=== PATIENT | female | born 1995 | race Caucasian/White ===

== ENCOUNTER → 2022-03-14 16:01 | Observation (INO) ==
[2022-03-14 14:54] LABS: Bilirubin,Urine Negative (Negative); Blood,Urine Negative (Negative); Clarity,Urine Clear (Clear); Color,Urine Light-Yellow (Yellow); Glucose,Urine (UA) Normal (Normal); Ketones,Urine Negative (Negative); Leukocyte Esterase,Urine Negative (Negative); Nitrite,Urine Negative (Negative); Protein,Urine Trace mg/dL (Neg-Trace); Specific Gravity,Urine 1.023 (1.010-1.025); Urobilinogen,Urine Normal (Normal)
== END | disposition home or self-care (01) ==
LOC: 1NENULAB
PROVIDERS: ADMIT Obstetrics & Gynecology; ATTEND Obstetrics & Gynecology

== ENCOUNTER 2022-03-19 02:43 | Inpatient (IN) ==
[2022-03-19] MEDS ORDERED: Ringers Solution, Lactated 1,000 ML ONE ×2 (03:28→21:11)
[2022-03-19] MEDS ORDERED: Penicillin G Potassium 5,000,000 UNIT in 0.9 % Sodium Chloride Mini Bag 100 ML IVPB ONE (04:05)
[2022-03-19] MEDS ORDERED: Famotidine 20 MG/2 ML VIAL IVP PRN (04:06)
[2022-03-19] MEDS ORDERED: *HR* Nalbuphine 10 MG/ML AMPUL IV PRN (04:06)
[2022-03-19] MEDS ORDERED: Metoclopramide 10 MG/2 ML VIAL IVP PRN ×2 (04:06→23:40)
[2022-03-19] MEDS ORDERED: Naloxone 0.4 MG/ML INJ IVP PRN (04:06)
[2022-03-19 04:36] LABS: Basophils # 0.1 K/mcL (0.0-0.2); Basophils % 0.3 %; Eosinophils # 0.1 K/mcL (0.0-0.6); Eosinophils % 0.9 %; Hematocrit 35.5 % (35.3-44.9); Hemoglobin 11.7 g/dL (11.5-15.4); Immature Granulocytes % 0.6 % (0-4); Lymphocytes # 2.1 K/mcL (0.6-4.6); Lymphocytes % 14.8 %; Mean Corpuscular Hemoglobin 29.2 pg (28.0-33.3); Mean Corpuscular Volume 88.5 fL (83.0-100.0); Mean Platelet Volume 11.2 fL (9.4-12.4); Monocytes # 0.9 K/mcL (0.0-1.3); Monocytes % 6.6 %; Platelet Count 308 K/mcL (140-400); Red Blood Count 4.01 M/mcL (3.82-4.97); Red Cell Distribution Width 12.3 % (11.5-14.5); Segmented Neutrophils % 76.8 %; White Blood Count 14.3 K/mcL (4.3-11.1)
[2022-03-19 04:55] LABS: Alanine Aminotransferase 9 Units/L (7-52); Aspartate Amino Transferase 15 Units/L (13-39); BUN/Creatinine Ratio 16 (6-26); Blood Urea Nitrogen 10 mg/dL (6-20); Lactate Dehydrogenase 153 Units/L (140-271); Uric Acid 3.3 mg/dL (2.3-7.6)
[2022-03-19 05:29] LABS: INR 0.9
[2022-03-19 05:31] LABS: Activated Partial Thrombo Time 25.7 Seconds (26.0-36.0)
[2022-03-19] MEDS ORDERED: Acetaminophen 325 MG TABLET PO ONE (06:15)
[2022-03-19] MEDS ORDERED: EPHEDrine 50 MG/ML VIAL IVP PRN (06:26)
[2022-03-19] MEDS: Ondansetron 4 MG/2 ML VIAL IVP PRN ×2 (06:28→13:50)
[2022-03-19] MEDS ORDERED: Epidural Premix (fent/bupiv) 110 ML EP SCH (06:30)
[2022-03-19] MEDS: Penicillin G Potassium 2,500,000 UNIT/105 ML MLS IVPB SCH ×3 (08:31→16:36)
[2022-03-19] MEDS ORDERED: Methyl Salicylate/Menthol 85 APPL/85 GM TUBE TP PRN (08:45)
[2022-03-19 09:20] LABS: Creatinine,Urine 67 mg/dL; Protein/Creatinine Ratio,Urine 0.09 mg/mg (0.00-0.20)
[2022-03-19] MEDS ORDERED: Oxytocin 30 UNIT/503 ML BAG IVC SCH ×2 (10:10→23:40)
[2022-03-19] MEDS: Ringers Solution, Lactated 1,000 ML IVC SCH ×2 (11:04→17:21)
[2022-03-19] MEDS ORDERED: Acetaminophen 325 MG TABLET PO PRN (12:20)
[2022-03-19] MEDS ORDERED: Methylergonovine 0.2 MG/ML AMPUL IM ONE ×2 (12:33→23:40)
[2022-03-19 15:26] LABS: Amphetamine Screen,Urine Negative ng/mL (Cutoff=1000); Barbiturate Screen,Urine Negative ng/mL (Cutoff=200); Benzodiazepines Screen,Urine Negative ng/mL (Cutoff=200); Cannabinoid Screen,Urine Negative ng/mL (Cutoff = 50); Cocaine Screen,Urine Negative ng/mL (Cutoff= 300); Opiate Screen,Urine Negative ng/mL (Cutoff=300); Phencyclidine Screen,Urine Negative ng/mL (Cutoff=25)
[2022-03-19] MEDS ORDERED: Ropivacaine/PF 0.2% 20 ML VIAL ONE (16:50)
[2022-03-19] MEDS ORDERED: *HR* Oxytocin 10 UNIT/ML VIAL ONE (19:36)
[2022-03-19] MEDS ORDERED: EPHEDrine 50 MG/ML VIAL ONE (19:37)
[2022-03-19] MEDS ORDERED: Acetaminophen IV 1,000 MG/100 ML BAG IVPB ONE (19:49)
[2022-03-19] MEDS ORDERED: *HR* Morphine Sulfate/PF 10 MG/10 ML AMPUL ONE (19:58)
[2022-03-19] MEDS ORDERED: Ondansetron 4 MG/2 ML VIAL ONE (20:13)
[2022-03-19] MEDS ORDERED: *HR* FentaNYL (PF) 100 MCG/2 ML VIAL IVP PRN (21:30)
[2022-03-19] MEDS ORDERED: Ringers Solution, Lactated 1,000 ML IVC SCH (23:40)
[2022-03-19] MEDS ORDERED: OXYTOCIN/RINGERS LACTATE 10 UNIT/166.6 ML BAG IVC ONE (23:40)
[2022-03-19] MEDS ORDERED: *HR* OxyCODONE Immed Rel 5 MG TABLET PO PRN (23:40)
[2022-03-19] MEDS ORDERED: Ondansetron 4 MG/2 ML VIAL IVP PRN (23:40)
[2022-03-20] MEDS: Ibuprofen 600 MG TABLET PO SCH ×4 (00:20→21:05)
[2022-03-20 00:43] LABS: Hematocrit 26.8 % (35.3-44.9); Mean Corpuscular HGB Conc 32.8 g/dL (31.6-35.5); Mean Corpuscular Hemoglobin 29.6 pg (28.0-33.3); Mean Corpuscular Volume 90.2 fL (83.0-100.0); Mean Platelet Volume 10.5 fL (9.4-12.4); Platelet Count 228 K/mcL (140-400); Red Blood Count 2.97 M/mcL (3.82-4.97); Red Cell Distribution Width 12.3 % (11.5-14.5)
[2022-03-20 00:54] LABS: Hemoglobin 8.8 g/dL (11.5-15.4); White Blood Count 24.8 K/mcL (4.3-11.1)
[2022-03-20 01:22] LABS: Lymphocytes # 1.5 K/mcL (0.6-4.6); Neutrophils # 22.3 K/mcL (1.6-8.9)
[2022-03-20 01:23] LABS: Platelet Estimate Normal (Normal)
[2022-03-20] MEDS: Acetaminophen 325 MG TABLET PO SCH ×2 (02:05→09:25)
[2022-03-20 06:29] LABS: Basophils % 0.2 %; Eosinophils % 0.1 %; Hematocrit 24.4 % (35.3-44.9); Hemoglobin 7.9 g/dL (11.5-15.4); Immature Granulocytes % 0.7 % (0-4); Lymphocytes # 1.6 K/mcL (0.6-4.6); Lymphocytes % 7.7 %; Mean Corpuscular HGB Conc 32.4 g/dL (31.6-35.5); Mean Corpuscular Hemoglobin 28.9 pg (28.0-33.3); Mean Corpuscular Volume 89.4 fL (83.0-100.0); Mean Platelet Volume 10.6 fL (9.4-12.4); Monocytes # 1.1 K/mcL (0.0-1.3); Monocytes % 5.4 %; Neutrophils # 18.2 K/mcL (1.6-8.9); Platelet Count 228 K/mcL (140-400); Red Blood Count 2.73 M/mcL (3.82-4.97); Red Cell Distribution Width 12.6 % (11.5-14.5); Segmented Neutrophils % 85.9 %; White Blood Count 21.1 K/mcL (4.3-11.1)
[2022-03-20 06:41] LABS: Prothrombin Time 11.4 Seconds (9.4-12.1)
[2022-03-20 06:56] LABS: Activated Partial Thrombo Time 19.6 Seconds (26.0-36.0)
[2022-03-20] MEDS ORDERED: *HR* Enoxaparin 40 MG/0.4 ML SYRINGE SQ SCH ×2 (09:00→09:10)
[2022-03-20] MEDS: metroNIDAZOLE 500 MG TABLET PO SCH ×3 (09:24→21:05)
[2022-03-20] MEDS: Simethicone 80 MG TAB.CHEW PO SCH ×2 (09:24→21:05)
[2022-03-20] MEDS: Prenatal Vit/FA 1 EACH TABLET PO SCH (09:25)
[2022-03-20] MEDS: *HR* HYDROcodone/Acet 5/325 mg TABLET PO PRN ×2 (11:31→22:41)
[2022-03-20 12:13] LABS: Hematocrit 21.9 % (35.3-44.9); Hemoglobin 7.1 g/dL (11.5-15.4)
[2022-03-20] MEDS: cephALEXin 500 MG CAPSULE PO SCH ×2 (15:35→21:05)
[2022-03-21] MEDS: Ibuprofen 600 MG TABLET PO SCH ×3 (02:59→21:00)
[2022-03-21 03:13] LABS: Basophils % 0.3 %; Eosinophils # 0.2 K/mcL (0.0-0.6); Eosinophils % 1.2 %; Hematocrit 18.6 % (35.3-44.9); Immature Granulocytes % 0.9 % (0-4); Lymphocytes # 2.8 K/mcL (0.6-4.6); Lymphocytes % 20.1 %; Mean Corpuscular HGB Conc 32.3 g/dL (31.6-35.5); Mean Corpuscular Hemoglobin 29.4 pg (28.0-33.3); Mean Corpuscular Volume 91.2 fL (83.0-100.0); Mean Platelet Volume 10.6 fL (9.4-12.4); Monocytes # 0.9 K/mcL (0.0-1.3); Monocytes % 6.5 %; Platelet Count 213 K/mcL (140-400); Red Blood Count 2.04 M/mcL (3.82-4.97); Red Cell Distribution Width 12.8 % (11.5-14.5); White Blood Count 14.1 K/mcL (4.3-11.1)
[2022-03-21] MEDS ORDERED: 0.9 % Sodium Chloride 250 ML ONE (04:31)
[2022-03-21] MEDS: cephALEXin 500 MG CAPSULE PO SCH ×3 (07:55→21:00)
[2022-03-21] MEDS: metroNIDAZOLE 500 MG TABLET PO SCH ×3 (07:55→21:00)
[2022-03-21] MEDS: Prenatal Vit/FA 1 EACH TABLET PO SCH (07:55)
[2022-03-21] MEDS: Simethicone 80 MG TAB.CHEW PO SCH ×3 (07:55→21:00)
[2022-03-21] MEDS: Acetaminophen 325 MG TABLET PO SCH ×2 (07:56→16:57)
[2022-03-21] MEDS ORDERED: 0.9 % Sodium Chloride 500 ML ONE (09:02)
[2022-03-21] MEDS ORDERED: *HR* Enoxaparin 40 MG/0.4 ML SYRINGE SQ SCH (16:00)
[2022-03-21 18:55] LABS: Hematocrit 25.1 % (35.3-44.9); Mean Corpuscular HGB Conc 33.1 g/dL (31.6-35.5); Mean Corpuscular Volume 90.6 fL (83.0-100.0); Mean Platelet Volume 10.3 fL (9.4-12.4); Platelet Count 222 K/mcL (140-400); Red Blood Count 2.77 M/mcL (3.82-4.97); Red Cell Distribution Width 13.2 % (11.5-14.5)
[2022-03-21 18:57] LABS: Hemoglobin 8.3 g/dL (11.5-15.4)
[2022-03-21] MEDS: *HR* HYDROcodone/Acet 5/325 mg TABLET PO PRN (21:01)
[2022-03-22 01:43] VITALS: BP 102/63; PULSE 98; TEMP 98.3; O2SAT 97
[2022-03-22] MEDS: Acetaminophen 325 MG TABLET PO SCH (03:41)
[2022-03-22] MEDS: Ibuprofen 600 MG TABLET PO SCH (03:42)
[2022-03-22] MEDS: Prenatal Vit/FA 1 EACH TABLET PO SCH (08:27)
[2022-03-22] MEDS: Simethicone 80 MG TAB.CHEW PO SCH (08:27)
== END 2022-03-22 14:03 | disposition home or self-care (01) | DRG 787 ==
LOC: 1NENULAB → OBSVTOIN 02:43 → 1NENUOBS 23:24
PROVIDERS: ADMIT Student in an Organized Health Care Education/Training Program; ATTEND Student in an Organized Health Care Education/Training Program